=== PATIENT | female | born 1990 | race Hispanic/Latino ===

== ENCOUNTER → 2018-07-21 | Outpatient (CLI) | payer OTHER | END | disposition home or self-care (01) | LOC: RAH 12:03 | PROVIDERS: ATTEND Nurse Practitioner Family | DX: M25.532 Pain in left wrist (principal) | CPT/HCPCS: 73110 ==

== ENCOUNTER → 2018-12-14 | Outpatient (CLI) | payer OTHER ==
[2018-12-14 16:09] LABS: MEAN CORPUSCULAR HEMOGLOBIN 30.2 pg (27.0-33.0); MEAN CORPUSCULAR VOLUME 88.8 fL (79-99); NUCLEATED RED BLOOD CELLS 0.1 % (0.0-0.19); PLATELET COUNT (AUTO) 242 K/uL (130-400); RED BLOOD CELL COUNT(AUTO) 4.61 MIL/uL (4.00-5.50); RED CELL DISTRIBUTION WIDTH 14.1 % (11.0-15.5)
[2018-12-14 16:16] LABS: APPEARANCE,URINE SL CLOUDY (CLEAR); BILIRUBIN,URINE NEGATIVE (NEGATIVE); COLOR,URINE YELLOW (YELLOW); GLUCOSE, URINE (UA) NEGATIVE (NEGATIVE); KETONES,URINE NEGATIVE (NEGATIVE); LEUKOCYTE ESTERASE ,URINE SMALL (NEGATIVE); NITRATE,URINE NEGATIVE (NEGATIVE); OCCULT BLOOD,URINE NEGATIVE (NEGATIVE); PROTEIN,URINE NEGATIVE (NEGATIVE); UROBILINOGEN,URINE 0.2 mg/dL (0.2-1.0)
[2018-12-14 16:56] LABS: ALBUMIN 4.2 g/dL (3.5-5.0); BILIRUBIN,TOTAL 0.5 mg/dL (0.2-1.0); CREATININE 0.7 mg/dL (0.5-1.5); POTASSIUM 3.9 mmol/L (3.5-5.1); THYROID STIMULATING HORMONE 1.38 uIU/mL (0.36-3.74); TOTAL PROTEIN, SERUM 8.3 g/dL (6.0-8.3)
[2018-12-14 17:20] LABS: ERYTHROCYTE SEDIMENTATION RATE 20 MM/HR (0-20)
[2018-12-14 17:38] LABS: BACTERIA,URINE Few /HPF (None Seen); RBC,URINE 0-1 /HPF (0-1); SQUAMOUS EPITHELIAL CELL,UR Few /HPF (0-2)
[2018-12-14 17:48] LABS: BAND NEUTROPHILS % (MANUAL) 2 % (0-2); BASOPHILS % (MANUAL) 1 % (0-2); LYMPHOCYTES % (MANUAL) 31 % (22-44); MAN.DIFF COMMENT-IMPRESSION MANUAL DIFFERENTIAL; MONOCYTES % (MANUAL) 6 % (2-9); REACTIVE LYMPHOCYTES 2 % (0-0); SEGMENTED NEUTROPHILS % 58 % (40-70)
[2018-12-14 17:52] LABS: PLATELET MORPHOLOGY COMMENT LARGE PLTS PRESENT
== END | disposition home or self-care (01) ==
LOC: LAB 15:01
PROVIDERS: ATTEND Nurse Practitioner Family
DX: K29.00 Acute gastritis without bleeding (principal)
CPT/HCPCS: 36415; 80053; 80061; 81001; 82150; 82306; 83013; 83690; 84439; 84443; 84703; 85025; 85651

== ENCOUNTER 2020-04-13 23:19 | Emergency (ER) | payer OTHER ==
[2020-04-13] MEDS ORDERED: ACETAMINOPHEN EXTRA STRENGTH 500 MG TABLET ONE (23:36)
[2020-04-13] MEDS ORDERED: IBUPROFEN 400 MG TABLET ONE (23:36)
== END 2020-04-14 00:44 | disposition home or self-care (01) ==
LOC: EDH 23:19
DX: S93.401A Sprain of unspecified ligament of right ankle, initial encounter (principal); Z90.49 Acquired absence of other specified parts of digestive tract; Z88.1 Allergy status to other antibiotic agents; X58.XXXA Exposure to other specified factors, initial encounter; Y93.89 Activity, other specified; Y92.098 Other place in other non-institutional residence as the place of occurrence of the external cause; Y99.8 Other external cause status
CPT/HCPCS: 73610

== ENCOUNTER 2021-02-02 14:32 | Emergency (ER) | payer OTHER ==
[~2021-02-02] VITALS: Ht 149.9 cm; Wt 81.2 kg
[2021-02-02 15:00] VITALS: BP 153/100
[2021-02-02 15:17] VITALS: BP 137/78
[2021-02-02] MEDS ORDERED: 0.9%NACL 1000ML 1,000 ML IV ONE (15:30)
[2021-02-02] MEDS ORDERED: MORPHINE 2 MG SYG IVP ONE (15:30)
[2021-02-02] MEDS ORDERED: KETOROLAC 15MG/ML VIAL (15MG/ML) IV ONE (15:30)
[2021-02-02 16:44] LABS: APPEARANCE,URINE Cloudy (CLEAR); BILIRUBIN,URINE Negative (NEGATIVE); COLOR,URINE Yellow (YELLOW); GLUCOSE, URINE (UA) Negative (NEGATIVE); KETONES,URINE Negative (NEGATIVE); LEUKOCYTE ESTERASE ,URINE Small (NEGATIVE); NITRATE,URINE Negative (NEGATIVE); OCCULT BLOOD,URINE Negative (NEGATIVE); PROTEIN,URINE Negative (NEGATIVE)
[2021-02-02 16:48] LABS: BASOPHILS % (AUTO) 0.6 % (0.0-5.0); EOSINOPHILS % (AUTO) 1.5 % (0.0-8.0); HEMATOCRIT 38.2 % (36-48); LYMPHOCYTES % (AUTO) 31.5 % (21.0-51.0); MEAN CORPUSCULAR HEMOGLOBIN 28.8 pg (27.0-33.0); MEAN CORPUSCULAR VOLUME 87.4 fL (79-99); NEUTROPHILS % (AUTO) 58.1 % (40.0-77.0); PLATELET COUNT (AUTO) 202 K/uL (130-400); RED BLOOD CELL COUNT(AUTO) 4.37 MIL/uL (4.00-5.50); RED CELL DISTRIBUTION WIDTH 14.5 % (11.0-15.5); WHITE BLOOD COUNT (AUTO) 9.7 K/uL (4.8-10.8)
[2021-02-02 16:49] LABS: HCG,QUAL RESULT NEGATIVE (NEGATIVE)
[2021-02-02 16:51] LABS: BACTERIA,URINE Few /HPF (None Seen); RBC,URINE 0-1 /HPF (0-1); SQUAMOUS EPITHELIAL CELL,UR Moderate /HPF (0-2)
[2021-02-02 17:03] LABS: CREATININE 0.7 mg/dL (0.5-1.5)
[2021-02-02 17:07] LABS: ALBUMIN 3.6 g/dL (3.5-5.0); BILIRUBIN,TOTAL 0.2 mg/dL (0.2-1.0); TOTAL PROTEIN, SERUM 7.3 g/dL (6.0-8.3)
[2021-02-02 17:13] VITALS: BP 125/69
[2021-02-02] MEDS ORDERED: ONDANSETRON 4MG INJ IVP ONE (17:30)
[2021-02-02] MEDS ORDERED: MACR100 PO (18:12)
[2021-02-02 18:18] VITALS: BP 108/57
[2021-02-02] MEDS ORDERED: NITROFURANTOIN MONOHYD/M-CRYST 100 MG CAPSULE PO ONE (18:30)
== END 2021-02-02 18:32 | disposition home or self-care (01) ==
LOC: EDH 14:32
DX: R10.11 Right upper quadrant pain (principal); K76.0 Fatty (change of) liver, not elsewhere classified; N39.0 Urinary tract infection, site not specified; Z88.1 Allergy status to other antibiotic agents
CPT/HCPCS: 36415; 76705; 80053; 81001; 81025; 82150; 83690; 85025; 93005; 96374; 96375; 99285; J1885; J2405

== ENCOUNTER 2021-02-05 11:12 | Emergency (ER) | payer OTHER ==
[~2021-02-05] VITALS: Ht 149.9 cm; Wt 81.2 kg
[~2021-02-05 11:12] MED LIST: MACR100 PO
[2021-02-05 11:18] VITALS: BP 147/89
[2021-02-05 12:03] LABS: BASOPHILS % (AUTO) 0.5 % (0.0-5.0); EOSINOPHILS % (AUTO) 1.5 % (0.0-8.0); HEMATOCRIT 39.6 % (36-48); LYMPHOCYTES % (AUTO) 36.1 % (21.0-51.0); MEAN CORPUSCULAR HGB CONC 33.3 g/dL (32.0-36.0); MONOCYTES % (AUTO) 8.5 % (3.0-13.0); NEUTROPHILS % (AUTO) 52.9 % (40.0-77.0); PLATELET COUNT (AUTO) 229 K/uL (130-400); RED BLOOD CELL COUNT(AUTO) 4.55 MIL/uL (4.00-5.50); RED CELL DISTRIBUTION WIDTH 14.5 % (11.0-15.5); WHITE BLOOD COUNT (AUTO) 8.6 K/uL (4.8-10.8)
[2021-02-05 12:07] LABS: CREATININE 0.7 mg/dL (0.5-1.5); POTASSIUM 4.1 mmol/L (3.5-5.1)
[2021-02-05] MEDS ORDERED: FAMO-136 PO (12:16)
[2021-02-05] MEDS ORDERED: DICY20TA2 PO (12:16)
[2021-02-05 12:18] LABS: BILIRUBIN,TOTAL 0.6 mg/dL (0.2-1.0); TOTAL PROTEIN, SERUM 8.1 g/dL (6.0-8.3)
[2021-02-05] MEDS ORDERED: FAMOTIDINE 20MG TAB PO ONE (12:30)
[2021-02-05] MEDS ORDERED: DICYCLOMINE HCL 20 MG TAB PO SCH (12:30)
== END 2021-02-05 13:04 | disposition home or self-care (01) ==
LOC: MERGE 11:12 → EDH 11:12
DX: K29.70 Gastritis, unspecified, without bleeding (principal); K76.0 Fatty (change of) liver, not elsewhere classified; N39.0 Urinary tract infection, site not specified; R03.0 Elevated blood-pressure reading, without diagnosis of hypertension; E66.9 Obesity, unspecified; Z68.36 Body mass index [BMI] 36.0-36.9, adult
CPT/HCPCS: 36415; 80053; 82150; 83690; 84702; 85025

== ENCOUNTER 2021-02-25 04:52 | Emergency (ER) | payer OTHER ==
[~2021-02-25] VITALS: Ht 149.9 cm; Wt 79.8 kg
[~2021-02-25 04:52] MED LIST changes: +DICY20TA2 PO; +FAMO-136 PO
[2021-02-25 04:57] VITALS: BP 124/90
[2021-02-25 06:26] VITALS: BP 122/76
[2021-02-25 06:36] LABS: APPEARANCE,URINE Clear (CLEAR); BILIRUBIN,URINE Negative (NEGATIVE); COLOR,URINE Yellow (YELLOW); GLUCOSE, URINE (UA) Negative (NEGATIVE); KETONES,URINE Negative (NEGATIVE); LEUKOCYTE ESTERASE ,URINE Negative (NEGATIVE); NITRATE,URINE Negative (NEGATIVE); OCCULT BLOOD,URINE Negative (NEGATIVE); PH,URINE 6.5 (5.0-8.0); PROTEIN,URINE Negative (NEGATIVE)
[2021-02-25] MEDS ORDERED: KETOROLAC 30MG VIAL (30MG/ML) ONE (06:51)
[2021-02-25] MEDS ORDERED: HYDROMORPHONE 1 MG INJ ONE (06:51)
[2021-02-25] MEDS ORDERED: HYDROMORPHONE 1 MG INJ IM SCH (07:00)
[2021-02-25] MEDS ORDERED: KETOROLAC 30MG VIAL (30MG/ML) IM SCH (07:00)
[2021-02-25] MEDS ORDERED: METH-662 PO (07:09)
[2021-02-25 08:56] VITALS: BP 127/78
== END 2021-02-25 08:57 | disposition home or self-care (01) ==
LOC: EDH 04:52
DX: S39.012A Strain of muscle, fascia and tendon of lower back, initial encounter (principal); Z79.1 Long term (current) use of non-steroidal anti-inflammatories (NSAID); X58.XXXA Exposure to other specified factors, initial encounter; Y93.89 Activity, other specified; Y92.89 Other specified places as the place of occurrence of the external cause; Y99.8 Other external cause status
CPT/HCPCS: 72100; 81003; 96372 ×2; 99284; J1170; J1885

== ENCOUNTER 2022-11-27 19:07 | Emergency (ER) | payer OTHER ==
[~2022-11-27] VITALS: Ht 149.9 cm; Wt 88.5 kg
[~2022-11-27 19:07] MED LIST changes: +METH-662 PO
[2022-11-27 19:10] VITALS: BP 154/104
[2022-11-27] MEDS ORDERED: CYCL10TA16 PO (21:47)
[2022-11-27] MEDS ORDERED: IBUP-2070 PO (21:47)
[2022-11-27] MEDS ORDERED: DEXAMETHASONE SOD PHOSPHATE 4 MG/ML 1ML VIAL IM SCH (22:00)
[2022-11-27] MEDS ORDERED: CYCLOBENZAPRINE HCL 10 MG TABLET PO ONE (22:00)
== END 2022-11-27 22:08 | disposition home or self-care (01) ==
LOC: EDH 19:07
DX: M54.32 Sciatica, left side (principal)
CPT/HCPCS: 99283; 96372; J1100

== ENCOUNTER 2023-09-14 02:23 | Emergency (ER) | payer OTHER ==
[~2023-09-14] VITALS: Ht 149.9 cm; Wt 93.0 kg
[~2023-09-14 02:23] MED LIST changes: +CYCL10TA16 PO; +IBUP-2070 PO
[2023-09-14 03:00] LABS: APPEARANCE,URINE CLEAR (CLEAR); BILIRUBIN,URINE NEGATIVE (NEGATIVE); COLOR,URINE LIGHT-YELLOW (YELLOW); GLUCOSE, URINE (UA) NEGATIVE (NEGATIVE); KETONES,URINE NEGATIVE (NEGATIVE); LEUKOCYTE ESTERASE ,URINE NEGATIVE Leu/uL (NEGATIVE); NITRATE,URINE NEGATIVE (NEGATIVE); OCCULT BLOOD,URINE LARGE (NEGATIVE); PROTEIN,URINE NEGATIVE (NEGATIVE); UROBILINOGEN,URINE 0.2 mg/dL (0.2-1.0)
[2023-09-14 03:01] LABS: ADD UA MICROSCOPIC YES
[2023-09-14 03:02] LABS: BACTERIA,URINE FEW /HPF (None Seen); MUCUS,URINE RARE LPF (None Seen); RBC,URINE TNTC /HPF (0-1); SQUAMOUS EPITHELIAL CELL,UR RARE /HPF (0-2)
[2023-09-14] MEDS: DIAZEPAM 5 MG/ML 2 ML SYG IVP ONE (05:03)
[2023-09-14] MEDS: KETOROLAC 30MG VIAL (30MG/ML) IVP ONE (05:04)
[2023-09-14] MEDS: 0.9%NACL 1000ML 1,000 ML IV ONE (05:04)
[2023-09-14 06:02] LABS: BASOPHILS # (AUTO) 0.04 K/uL (0.00-0.20); BASOPHILS % (AUTO) 0.3 % (0.0-5.0); EOSINOPHILS # (AUTO) 0.05 K/uL (0.00-0.70); EOSINOPHILS % (AUTO) 0.4 % (0.0-8.0); HEMATOCRIT 36.7 % (36-48); IMMATURE GRANULOCYTE ABSOLUTE 0.07 K/uL (0-1); LYMPHOCYTES # (AUTO) 3.7 K/uL (1.0-4.8); LYMPHOCYTES % (AUTO) 28.4 % (21.0-51.0); MEAN CORPUSCULAR HEMOGLOBIN 28.5 pg (27.0-33.0); MEAN CORPUSCULAR VOLUME 86.6 fL (79-99); MONOCYTES # (AUTO) 0.9 K/uL (0.1-1.0); MONOCYTES % (AUTO) 6.6 % (3.0-13.0); NEUTROPHILS # (AUTO) 8.4 K/uL (1.8-7.7); NEUTROPHILS % (AUTO) 63.8 % (40.0-77.0); PLATELET COUNT (AUTO) 320 K/uL (130-400); RED BLOOD CELL COUNT(AUTO) 4.24 MIL/uL (4.00-5.50); RED CELL DISTRIBUTION WIDTH 14.6 % (11.0-15.5); WHITE BLOOD COUNT (AUTO) 13.1 K/uL (4.8-10.8)
[2023-09-14 06:17] LABS: ALBUMIN 3.5 g/dL (3.5-5.0); BILIRUBIN,TOTAL 0.4 mg/dL (0.2-1.0); CREATININE 0.6 mg/dL (0.5-1.0); TOTAL PROTEIN, SERUM 7.9 g/dL (6.0-8.3)
[2023-09-14] MEDS ORDERED: IOHEXOL-350 50ML VIAL IV ONE (06:34)
[2023-09-14 07:50] VITALS: BP 133/71; PULSE 63; RESP 16; O2SAT 98
[2023-09-14] MEDS ORDERED: METH-662 PO (08:26)
[2023-09-14] MEDS ORDERED: IBUP-2070 PO (08:26)
[2023-09-14] MEDS ORDERED: ACETAMINOPHEN 500 MG TABLET PO ONE (08:30)
== END 2023-09-14 08:30 | disposition home or self-care (01) ==
LOC: EDH 02:33
DX: M43.6 Torticollis (principal); Z79.899 Other long term (current) drug therapy; Z90.49 Acquired absence of other specified parts of digestive tract
CPT/HCPCS: 99285; 96374; 70491; 96361; 96375; 80053; 85025; 86140; 81001; 81025; 36415; J7030; J3360; J1885; Q9967